=== PATIENT | male | born 1955 | race Caucasian/White ===

== ENCOUNTER 2021-03-07 14:26 | Inpatient (IN) | payer OTHER ==
[2021-03-07 14:44] LABS: Basophils % (A) 0 %; Eosinophils # (A) 0.1 k/uL (0-0.7); Eosinophils % (A) 1 %; HCT 46.8 % (39.0-53.0); HGB 15.3 gm/dL (13.0-17.5); Lymphocytes # (A) 1.6 k/uL (1.0-4.8); Lymphocytes % (A) 10 %; MCHC 32.8 g/dL (31.0-37.0); MCV 97.7 fL (80.0-100.0); Mean Platelet Volume 7.3; Monocytes # (A) 0.8 k/uL (0-1.0); Monocytes % (A) 5 %; Neutrophils # (A) 13.5 k/uL (1.3-7.7); Neutrophils % (A) 83 %; Platelet Count 262 k/uL (150-450); RBC 4.79 m/uL (4.30-5.90); RDW 13.1 % (11.5-15.5); WBC 16.2 k/uL (3.8-10.6)
--- NOTE | 2021-03-07 14:47 | ED ---
Chest Pain HPI - General Chief Complaint: Chest Pain Stated Complaint: chest pain Time Seen by Provider: 03/07/21 14:26 Source: patient, EMS, RN notes reviewed Mode of arrival: EMS Limitations: no limitations - History of Present Illness Initial Comments: 65-year-old male with a benign past medical history other than smoking who started developing retrosternal burning chest pain about 3 hours prior to arrival he states it was 5-6/10 severity he did finally call EMS he was very weak and believes she might pass out and chair. He was given 325 mg of aspirin away and he states the pain is down to about to it this time. EKG done by paramedics suggest inferior wall myocardial infarction. MD Complaint: chest pain - Related Data Allergies Allergy/AdvReac Type Severity Reaction Status Date / Time No Known Allergies Allergy Verified 03/07/21 14:32 Review of Systems ROS Statement: Those systems with pertinent positive or pertinent negative responses have been documented in the HPI. ROS Other: All systems not noted in ROS Statement are negative. EKG Findings - EKG Results: EKG: interpreted by AYDEE, sinus rhythm (Sinus rhythm rate 97 DE interval 138 QRS 96 QT since QTC 348/[address] elevation in leads II, III, and F aVF with reciprocal aVL changes. Some suggestion of ST depression in the lateral leads. Consistent with acute ST elevation myocardial infarction) Past Medical History Past Medical History: No Reported History History of Any Multi-Drug Resistant Organisms: None Reported Past Surgical History: No Surgical Hx Reported Past Psychological History: No Psychological Hx Reported Smoking Status: Current every day smoker Past Alcohol Use History: None Reported Past Drug Use History: None Reported General Exam - General Exam Comments Initial Comments: This is a well-developed well-nourished awake alert oriented 3 male Limitations: no limitations General appearance: alert, anxious, in distress Head exam: Present: atraumatic, normocephalic, normal inspection Eye exam: Present: normal appearance, PERRL, EOMI. Absent: scleral icterus, conjunctival injection, periorbital swelling ENT exam: Present: normal exam, mucous membranes moist Neck exam: Present: normal inspection, full ROM, other (Review of any or bruits). Absent: tenderness, meningismus, lymphadenopathy Respiratory exam: Present: normal lung sounds bilaterally. Absent: respiratory distress, wheezes, rales, rhonchi, stridor Cardiovascular Exam: Present: regular rate, normal rhythm, normal heart sounds. Absent: systolic murmur, diastolic murmur, rubs, gallop, clicks GI/Abdominal exam: Present: soft, normal bowel sounds. Absent: distended, tenderness, guarding, rebound, rigid Extremities exam: Present: normal inspection, full ROM, normal capillary refill. Absent: tenderness, pedal edema, joint swelling, calf tenderness Back exam: Present: normal inspection Neurological exam: Present: alert, oriented X3, CN II-XII intact Psychiatric exam: Present: normal affect, normal mood Skin exam: Present: warm, dry, intact, normal color. Absent: rash Course Vital Signs 03/07/21 14:29 Temperature 98.2 F Pulse Rate 95 Respiratory 18 Rate Blood Pressure 142/74 O2 Sat by Pulse 95 Oximetry - Reevaluation(s) Reevaluation #1: 03/07/21 14:37 A STEMI alert was called as soon as EKG was reviewed. Dr. Nevarez is coming to the emergency department to see the patient. The Special Education Aide has been alerted. Reevaluation #2: 03/07/21 14:50 The patient persisted having chest pain 2/10 severity nitroglycerin was ordered Chest Pain MDM - MDM Imaging reviewed no evidence of acute findings on x-ray patient did demonstrate evidence of ST elevation myocardial infarction Dr. Nevarez did come the emergency department to see the patient he did go up to the Special Education Aide member 3. I did discuss case with Dr. Carroll Critical Care Time Critical Care Time: Yes Total Critical Care Time: 32 Critical Care Time: Critical care time including initial presentation with history physical x-rays labs reevaluation patient several occasions discussed with financial controller discussion with the admitting physician admission orders and documentation the above this also did include discussion with patient regarding the initial findings. Disposition Clinical Impression: STEMI (ST elevation myocardial infarction), Smoker Disposition: ADMITTED IP TO THIS [facility] Condition: Serious Referrals: None,Stated [Primary Care Provider] - 1-2 days
[2021-03-07] MEDS ORDERED: HEPARIN SODIUM 1,000 UN/ML (10ML VL) ONE (14:51)
[2021-03-07 14:54] LABS: Albumin 4.3 g/dL (3.5-5.0); Calcium 9.1 mg/dL (8.4-10.2); Magnesium 1.9 mg/dL (1.6-2.3); Total Bilirubin 0.9 mg/dL (0.2-1.3); Total Protein 7.1 g/dL (6.3-8.2)
[2021-03-07 14:55] LABS: Potassium 4.5 mmol/L (3.5-5.1)
--- NOTE | 2021-03-07 14:58 | XR ---
EXAMINATION TYPE: XR chest 2V DATE OF EXAM: 03/07/2021 COMPARISON: NONE HISTORY: Chest pain TECHNIQUE: Frontal and lateral views of the chest are obtained. FINDINGS: There is no focal air space opacity, pleural effusion, or pneumothorax seen. The cardiac silhouette size is within normal limits. There are overlying artifacts. There is a spinal curvature. The osseous structures are intact. IMPRESSION: No acute cardiopulmonary process.
[2021-03-07] MEDS ORDERED: IV FLUID CONTINUATION 500 ML IV ONE ×2 (14:59→15:10)
[2021-03-07] MEDS ORDERED: MIDAZOLAM 2 MG/2 ML VIAL IV ONE (15:00)
[2021-03-07] MEDS ORDERED: fentaNYL (PF) 50 MCG/ML 5 ML AMP IV ONE (15:00)
[2021-03-07] MEDS ORDERED: LIDOCAINE 1% INJ 10MG/ML (20 ML MDV) SQ ONE (15:00)
[2021-03-07] MEDS ORDERED: VERAPAMIL SYRINGE (5 MG/10 ML) INTRAARTER ONE (15:03)
[2021-03-07 15:04] LABS: INR 0.9 (<1.2); Partial Thromboplastin Time 21.4 sec (22.0-30.0); Prothrombin Time 9.7 sec (9.0-12.0)
[2021-03-07] MEDS ORDERED: TICAGRELOR 90 MG TAB ONE (15:04)
[2021-03-07] MEDS ORDERED: HEPARIN SODIUM 1,000 UN/ML (10ML VL) IV ONE (15:05)
[2021-03-07] MEDS ORDERED: TICAGRELOR 90 MG TAB PO ONE (15:07)
[2021-03-07] MEDS ORDERED: NOREPINEPHRINE 4 MG in SODIUM CHLORIDE 0.9% 250 ML IV ONE (15:10)
[2021-03-07] MEDS ORDERED: ATROPINE SULFATE 0.1 MG/ML 10ML SYRINGE IV ONE (15:10)
[2021-03-07] MEDS ORDERED: niCARdipine 25 MG/10 ML VIAL ONE (15:16)
[2021-03-07] MEDS: niCARdipine Syringe (1,000 mcg/10 mL) INTRAARTER ONE ×2 (15:16→15:18)
[2021-03-07] MEDS ORDERED: SODIUM CHLORIDE 0.9% 500 ML 500 ML IV ONE (15:18)
[2021-03-07] MEDS ORDERED: IOPAMIDOL-370 125ML BTL INJ ONE (15:24)
[2021-03-07] MEDS ORDERED: IV FLUID CONTINUATION 1,000 ML IV ONE (15:30)
[2021-03-07 16:00] LABS: Glucose,Whole Blood 133 mg/dL (75-99)
[2021-03-07] MEDS ORDERED: bisacodyL 10 MG SUPP RECTAL PRN (17:05)
[2021-03-07] MEDS ORDERED: NALOXONE 0.4 MG/ML 1 ML VIAL IV PRN (17:05)
[2021-03-07] MEDS ORDERED: ACETAMINOPHEN TAB 325 MG TAB PO PRN (17:05)
[2021-03-07] MEDS ORDERED: NICOTINE GUM (POLACRILEX) 2 MG GUM BUCCAL PRN (17:05)
[2021-03-07] MEDS ORDERED: LORazepam 2 MG/ML INJ IV PRN ×3 (17:09)
[2021-03-07] MEDS ORDERED: MORPHINE SULFATE 4 MG/ML SYRINGE IV PRN (17:09)
[2021-03-07] MEDS ORDERED: THIAMINE 100 MG/ML 2 ML VIAL IM STA (17:09)
--- NOTE | 2021-03-07 17:16 | P.HPIM ---
History of Present Illness H&P Date: 03/07/21 Chief Complaint: chest pain Patient is a 65 yo smoker who presetned to the emergency department with complaints of chest pain. In the ED EKG revelaed elevation in the inferior leads and he was taken emergently to grass farm laborer. He had placed and did require some levophed and had some bradycardia requiring atropine, developed V-tach and required defib X1. . He was admitted to the ICU for further management. Patient seen and examined at bedside. Course of this morning he was sitting in his chair. He had just come back and side from smoking a cigarette when he developed chest pain, mild shortness of breath, nausea, presyncope, and dizziness. He felt like when he laid down his heart was slow and not fast. He reports that he drinks approximately 6-8 beers daily and smokes one to one and half packs of cigarettes since age 31. He has not seen a physician in 10 years. Denies any family history of myocardial infarction Pertinent positives and negatives as discussed in HPI, a complete review of systems was performed and all other systems are negative. General: non toxic, no distress, appears at stated age Derm: warm, dry Head: atraumatic, normocephalic, symmetric Eyes: EOMI, no lid lag, anicteric sclera, pupils equal round reactive to light ENT: Nose and ears atraumatic, no thrush, no pharyngeal erythema Neck: No thyromegaly, no cervical lymphadenopathy, trachea midline, supple Mouth: no lip lesion, mucus membranes moist Cardiovascular: S1S2 reg, no murmur, positive posterior tibial pulse bilateral, no edema, capillary refill less than 2 seconds Lungs: clear to ascultation bilateral, no ronchi, no rales, no wheeze, no accessory muscle use Abdominal: soft, nontender to palpation, no guarding, no appreciable organomegaly, normal bowel sounds Ext: no gross muscle atrophy, muscle strength muscle strength 5 out of 5 in all 4 extremities, no contractures Neuro: CN II-XI grossly intact, light touch intact all 4 extremities, finger to nose within normal limits, Psych: Alert, oriented, appropriate affect Inferior STEMI - s/p 1 stent to trhe RCA - ASA, Brillenta, Statin - Cardio recs - Echo in AM - Telel - Check Lipid Profile - check 1aV V-tachy and [place] s/p defib - Telel ETOH abuse - CIWA - Thiamine - F[place] Acid Tobacco abuse - cessation - nicotine replacement Leukocytosis - likely reactive - follow CBC The patient is admitted with an anticipated greater than 2 midnight stay for evaluation of STEMI. Surrogate decision-maker: daughter CODE STATUS:full DVT prophylaxis: Lovenox Discussed with: Larry, nursing, ED physician Anticipated discharge date: in [address]: home A total of 65 minutes was spent on the care of this complex patient more than 50% of the time was spent in counseling and care coordination. Past Medical History Past Medical History: No Reported History History of Any Multi-Drug Resistant Organisms: None Reported Additional Past Surgical History / Comment(s): knee surgery, left knee broken, right knee scoped Past Anesthesia/Blood Transfusion Reactions: No Reported Reaction Past Psychological History: No Psychological Hx Reported Smoking Status: Current every day smoker Past Alcohol Use History: Heavy Past Drug Use History: None Reported Additional History: retired truck driver helper - Past Family History Mother Family Medical History: No Reported History Father Additional Family Medical History / Comment(s): of cancer Brother(s) Additional Family Medical History / Comment(s): colostomy for bowel cancer Medications and Allergies Home Medications Medication Instructions Recorded Confirmed Type No Known Home Medications 03/07/21 03/07/21 History Allergies Allergy/AdvReac Type Severity Reaction Status Date / Time No Known Allergies Allergy Verified 03/07/21 16:34 Physical Exam Osteopathic Statement: *. No significant issues noted on an osteopathic structural exam other than those noted in the History and Physical/Consult. Vitals: Vital Signs Temp Pulse Pulse Resp BP Pulse Ox 03/07/21 17:00 91 14 97/66 98 03/07/21 16:35 97.7 F 93 12 112/72 96 03/07/21 14:35 78 18 142/70 97 03/07/21 14:29 98.2 F 95 18 142/74 95 03/07/21 14:28 80 Intake and Output 03/07/21 03/07/21 03/07/21 06:59 14:59 22:59 Intake Total 585 Balance 585 Intake: IV 585 NS at 75 75 Other: Weight 72.575 kg 78.5 kg Results CBC & Chem 7: 03/07/21 14:39 03/07/21 14:39 Labs: Abnormal Lab Results - Last 24 Hours (Table) 03/07/21 03/07/21 03/07/21 Range/Units 14:39 14:39 14:39 WBC 16.2 H (3.8-10.6) k/uL Neutrophils # 13.5 H (1.3-7.7) k/uL APTT 21.4 L (22.0-30.0) sec Sodium 136 L (137-145) mmol/L Carbon Dioxide 20 L (22-30) mmol/L Glucose 141 H (74-99) mg/dL POC Glucose (mg/dL) (75-99) mg/dL Troponin I (0.000-0.034) ng/mL 03/07/21 03/07/21 Range/Units 14:39 15:58 WBC (3.8-10.6) k/uL Neutrophils # (1.3-7.7) k/uL APTT (22.0-30.0) sec Sodium (137-145) mmol/L Carbon Dioxide (22-30) mmol/L Glucose (74-99) mg/dL POC Glucose (mg/dL) 133 H (75-99) mg/dL Troponin I 0.191 H* (0.000-0.034) ng/mL Thrombosis Risk Factor Assmnt - Choose All That Apply Any of the Below Risk Factors Present?: Yes Each Factor Represents 1 point: Acute LA, Medical pt on bed rest Other Risk Factors: Yes Each Risk Factor Represents 2 Points: Age 61-74 years Other congenital or acquired thrombophilia - If yes, enter type in comment: No Thrombosis Risk Factor Assessment Total Risk Factor Score: 4 Thrombosis Risk Factor Assessment Level: Moderate Risk
[2021-03-07] MEDS ORDERED: THIAMINE 100 MG TAB PO SCH (17:30)
[2021-03-07] MEDS ORDERED: ONDANSETRON 4 MG/2 ML VIAL IVP PRN (18:20)
[2021-03-07] MEDS: FOLIC ACID 1 MG TAB PO SCH (18:29)
[2021-03-07] MEDS: SODIUM CHLORIDE 0.9% 1,000 ML IV SCH ×2 (18:30→19:45)
[2021-03-07] MEDS ORDERED: MAG HYDROX/AL HYDROX/SIMETH 30 ML CUP PO PRN (18:35)
[2021-03-07] MEDS ORDERED: ATROPINE SULFATE 0.1 MG/ML 10ML SYRINGE IV PRN (18:35)
[2021-03-07] MEDS ORDERED: ZOLPIDEM 5 MG TAB PO PRN (18:35)
[2021-03-07] MEDS ORDERED: RX INFO: IV CONTRAST WAS GIVEN 1 EACH MISC MISCELLANE PRN (18:35)
[2021-03-07] MEDS ORDERED: NITROGLYCERIN SL TABS 0.4 MG TAB SUBLINGUAL PRN (18:35)
--- NOTE | 2021-03-07 18:48 | P.CRDCN ---
History of Present Illness History of present illness: HISTORY OF PRESENTING ILLNESS This is a pleasant 65-year-old with past medical history significant for tobacco abuse and alcohol abuse who presents secondary to approximate 3 hours of subster nal chest pain and pressure. He admits to some mild diaphoresis and shortness breath and states he has never had this before. He is not doing anything at the time. He did recently smoked marijuana however no cocaine or other illicit drugs. He does smoke a pack per day and drinks approximately 8 beers a day. EKG shows sinus rhythm with ST elevation inferiorly with reciprocal changes and therefore patient was taken to the [facility] where he had PCI of the RCA performed. He had otherwise minimal CAD with fairly normal coronary arteries. He did have significant bradycardia as well as hypotension requiring temporary norepinephrine and also had an episode of VT and therefore was defibrillated. REVIEW OF SYSTEMS At the time of my exam: CONSTITUTIONAL: Denies fever or chills. CARDIOVASCULAR: +chest pain, +shortness of breath, no orthopnea, PND or palpitations. RESPIRATORY: Denies cough. GASTROINTESTINAL: Denies abdominal pain, diarrhea, constipation, nausea or vomiting. MUSCULOSKELETAL: Denies myalgias. NEUROLOGIC: Denies numbness, tingling or weakness. ENDOCRINE: Denies fatigue, weight change, polydipsia or polyurina. GENITOURINARY: Denies burning, hematuria or urgency with micturation. HEMATOLOGIC: Denies history of anemia or bleeding. PHYSICAL EXAMINATION Vital signs reviewed. CONSTITUTIONAL: + mild distress. HEENT: Head is normocephalic. Pupils are equal, round. Sclerae anicteric. Mucous membranes of the mouth are moist. No JVD. No carotid bruit. CHEST EXAMINATION: Lungs are clear to auscultation. No chest wall tenderness is noted on palpation or with deep breathing. HEART EXAMINATION: Regular rate and rhythm. S1, S2 heard. No murmurs, gallops or rub. ABDOMEN: Soft, nontender. Positive bowel sounds. EXTREMITIES: 2+ peripheral pulses, no lower extremity edema and no calf tenderness. NEUROLOGIC EXAMINATION: Patient is awake, alert and oriented x3. ASSESSMENT 1. Inferior STEMI status post PCI RCA 2. Tobacco abuse 3. Alcohol abuse 4. Rare marijuana use 5. Poor medical follow-up, has not seen a doctor in years 6. VT, hypotension during PCI-improved PLAN Patient is status post PCI RCA with otherwise relatively normal coronary arteries. Continue with aspirin and Brilinta. Continue Lipitor and add low- dose Toprol however monitor closely given borderline blood pressures. Check 2-D echo. Tobacco cessation. Further recommendations to follow. Past Medical History Past Medical History: No Reported History History of Any Multi-Drug Resistant Organisms: None Reported Past Surgical History: No Surgical Hx Reported Additional Past Surgical History / Comment(s): knee surgery, left knee broken, right knee scoped Past Anesthesia/Blood Transfusion Reactions: No Reported Reaction Past Psychological History: No Psychological Hx Reported Smoking Status: Current every day smoker Past Alcohol Use History: Heavy Past Drug Use History: None Reported - Past Family History Mother History Unknown: Yes Family Medical History: No Reported History Father History Unknown: Yes Additional Family Medical History / Comment(s): of cancer Brother(s) Additional Family Medical History / Comment(s): colostomy for bowel cancer Medications and Allergies Home Medications Medication Instructions Recorded Confirmed Type No Known Home Medications 03/07/21 03/07/21 History Allergies Allergy/AdvReac Type Severity Reaction Status Date / Time No Known Allergies Allergy Verified 03/07/21 16:34 Physical Exam Vitals: Vital Signs Temp Pulse Pulse Resp BP Pulse Ox 03/07/21 18:00 87 16 113/72 97 03/07/21 17:30 96 14 112/72 97 03/07/21 17:00 91 14 97/66 98 03/07/21 16:35 97.7 F 93 12 112/72 96 03/07/21 14:35 78 18 142/70 97 03/07/21 14:29 98.2 F 95 18 142/74 95 03/07/21 14:28 80 Intake and Output 03/07/21 03/07/21 03/07/21 06:59 14:59 22:59 Intake Total 910 Output Total 250 Balance 660 Intake: IV 660 NS at 75 150 Oral 250 Output: Emesis 250 Other: Weight 72.575 kg 78.5 kg Results 03/07/21 14:39 03/07/21 14:39 Cardiac Enzymes 03/07/21 03/07/21 Range/Units 14:39 14:39 AST 36 (17-59) U/L Troponin I 0.191 H* (0.000-0.034) ng/mL Coagulation 03/07/21 Range/Units 14:39 PT 9.7 (9.0-12.0) sec APTT 21.4 L (22.0-30.0) sec CBC 03/07/21 Range/Units 14:39 WBC 16.2 H (3.8-10.6) k/uL RBC 4.79 (4.30-5.90) m/uL Hgb 15.3 (13.0-17.5) gm/dL Hct 46.8 (39.0-53.0) % Plt Count 262 (150-450) k/uL Comprehensive Metabolic Panel 03/07/21 Range/Units 14:39 Sodium 136 L (137-145) mmol/L Potassium 4.5 (3.5-5.1) mmol/L Chloride 104 (98-107) mmol/L Carbon Dioxide 20 L (22-30) mmol/L BUN 14 (9-20) mg/dL Creatinine 1.04 (0.66-1.25) mg/dL Glucose 141 H (74-99) mg/dL Calcium 9.1 (8.4-10.2) mg/dL AST 36 (17-59) U/L ALT 18 (4-49) U/L Alkaline Phosphatase 53 (38-126) U/L Total Protein 7.1 (6.3-8.2) g/dL Albumin 4.3 (3.5-5.0) g/dL Current Medications Generic Name Dose Route Start Last Admin Trade Name Freq PRN Reason Stop Dose Admin Acetaminophen 650 mg 03/07/21 17:05 Acetaminophen Tab 325 Mg Tab PO Q6HR PRN Mild Pain or Fever > 100.5 Al Hydroxide/Mg Hydroxide 30 ml 03/07/21 18:35 Mag Hydrox/Al Hydrox/Simeth 30 Ml Cup PO Q4HR PRN Heartburn Aspirin 81 mg 03/08/21 09:00 Aspirin 81 Mg PO DAILY [facility] Atorvastatin Calcium 40 mg 03/07/21 21:00 Atorvastatin 40 Mg Tab PO HS LEVI Atropine Sulfate 0.5 mg 03/07/21 18:35 Atropine Sulfate 0.1 Mg/Ml 10ml Syringe IV ONCE PRN Symptomatic Bradycardia Bisacodyl 10 mg 03/07/21 17:05 Bisacodyl 10 Mg Supp RECTAL ONCE PRN Constipation Enoxaparin Sodium 40 mg 03/08/21 09:00 Enoxaparin 40 Mg/0.4 Ml Syringe SQ DAILY [facility] Folic Acid 1 mg 03/07/21 17:15 03/07/21 18:29 Folic Acid 1 Mg Tab PO Not Given DAILY LEVI Sodium Chloride 1,000 mls @ 75 mls/hr 03/07/21 17:15 03/07/21 18:30 Saline 0.9% IV 75 mls/hr .[id number] LEVI Administration Sodium Chloride 1,000 mls @ 75 mls/hr 03/07/21 18:45 Saline 0.9% IV .[id number] LEVI Lorazepam 1 mg 03/07/21 17:09 Lorazepam 2 Mg/Ml Inj IV Q2HR PRN CIWA 8 or 9 Lorazepam 1 mg 03/07/21 17:09 Lorazepam 2 Mg/Ml Inj IV Q1HR PRN CIWA 10 to 15 Lorazepam 2 mg 03/07/21 17:09 Lorazepam 2 Mg/Ml Inj IV 03/09/21 17:09 Q10M PRN CIWA 16 or higher Metoprolol Succinate 12.5 mg 03/07/21 18:45 Metoprolol Succinate (Er) 25 Mg Tab.Er.24h PO DAILY [facility] Miscellaneous Information 1 each 03/07/21 18:35 Rx Info: Iv Contrast Was Given 1 Each Misc MISCELLANE 03/09/21 18:36 DAILY PRN Per Protocol Morphine Sulfate 4 mg 03/07/21 17:09 Morphine Sulfate 4 Mg/Ml Syringe IV Q5M PRN Chest Pain Multivitamins 1 each 03/08/21 09:00 Multivitamins, Thera 1 Each Tab PO DAILY [facility] Naloxone HCl 0.2 mg 03/07/21 17:05 Naloxone 0.4 Mg/Ml 1 Ml Vial IV Q2M PRN Opioid Reversal Nicotine Polacrilex 4 mg 03/07/21 17:05 Nicotine Gum (Polacrilex) 2 Mg Gum BUCCAL Q2HR PRN Nicotine Cravings Nitroglycerin 0.4 mg 03/07/21 18:35 Nitroglycerin Sl Tabs 0.4 Mg Tab SUBLINGUAL Q5M PRN Chest Pain Ondansetron HCl 4 mg 03/07/21 18:20 03/07/21 18:36 Ondansetron 4 Mg/2 Ml Vial IVP 4 mg Q8HR PRN Administration Nausea And Vomiting Thiamine HCl 100 mg 03/08/21 09:00 Thiamine 100 Mg Tab PO BID-W/MEALS [facility] Ticagrelor 90 mg 03/07/21 21:00 Ticagrelor 90 Mg Tab PO BID LEVI Zolpidem Tartrate 5 mg 03/07/21 18:35 Zolpidem 5 Mg Tab PO HS PRN Insomnia Intake and Output 03/07/21 03/07/21 03/07/21 06:59 14:59 22:59 Intake Total 910 Output Total 250 Balance 660 Intake: IV 660 NS at 75 150 Oral 250 Output: Emesis 250 Other: Weight 72.575 kg 78.5 kg Patient Weight 03/08/21 06:59 Weight 78.5 kg 03/07/21 14:39 03/07/21 14:39
[2021-03-07] MEDS: METOPROLOL SUCCINATE (ER) 25 MG TAB.ER.24H PO SCH (19:47)
--- NOTE | 2021-03-07 20:23 | P.PRCINT ---
Percutaneous Coronary Int. - Percutaneous Coronary Intervention Percutaneous Coronary Intervention: PROCEDURES PERFORMED: Left heart catheterization, bilateral coronary angiography, PCI mid RCA with a 4.0 x 23mm Xience CHUY INDICATION: Inferior STEMI HISTORY: Patient is a pleasant 65 year old male with history of alcohol and tobacco abuse who presents with 2-3 hours of chest pain and was found to have inferior STEMI. CONSENT:I have discussed the risks, benefits and alternative therapies for the above-mentioned procedure and for both sedation/analgesia as well as necessary blood product administration, if indicated, as they pertain to this patient. The patient has indicated understanding and acceptance of the risks and procedures discussed. PROCEDURE: After the risks, benefits and alternatives of the above mentioned procedure explained in detail with the patient, informed consent was obtained. Patient was taken to the catheterization lab and prepped and draped in usual fashion. 1% lidocaine was used to anesthetize the right radial artery. A 6- Scottish sheath was placed in the right radial artery using modified Seldinger technique. RCA angiography was performed with a 6Fr AL 0.75 guide. A 0.014 BMW wire was advanced into the distal RCA. Angioplasty was performed with a 2.5 x 12mm balloon. Patient did become bradycardic and hypotensive however this was improved with Norepinephrine. Patient then had an episode of VT and therefore defibirillation was performed. Next a 4.0 x 23mm Xience CHUY was placed. Preintervention there was 100% stenosis with EPG 0 flow and post intervention there was PEG 3 flow with 0% stenosis. Left coronary angiography was performed with a 5-Scottish JL 4.0 catheter in various views. The right radial sheath was removed and a TR band was placed with hemostasis achieved. The patient tolerated the procedure well. Patient was transported back to the post catheterization holding area in stable condition. Conscious Sedation: Patient was monitored under the direct supervision of vision of myself for conscious sedation using Versed and fentanyl for a total duration of [] minutes HEMODYNAMICS: Ao: 103/46 LV: 102/4, LVEDP: 11mmHg SELECTIVE CORONARY ARTERIOGRAPHY: LEFT MAIN: The left main is a large caliber vessel which bifurcates into the LAD and circumflex. There is no significant stenosis. LEFT ANTERIOR DESCENDING CORONARY ARTERY: LAD is a large caliber vessel which wraps around to the apex. There are mild luminal irregularities. LEFT CIRCUMFLEX CORONARY ARTERY: Left circumflex is a moderate caliber vessel with mild luminal irregularities. RIGHT CORONARY ARTERY: The right coronary artery is a large caliber vessel which gives off a PDA and PLV branch and is the dominant vessel. There is a mid RCA 100% stenosis. FINAL IMPRESSION: 1. CAD as described above with 100% RCA stenosis 2. Normal left sided filling pressures PLAN: 1. Aggressive risk factor modification per most recent ACC/AHA guidelines. 2. Continue dual antiplatelets for 12 months.
[2021-03-07] MEDS: TICAGRELOR 90 MG TAB PO SCH (20:34)
[2021-03-07] MEDS ORDERED: ATORVASTATIN 40 MG TAB PO SCH (21:00)
[2021-03-08] MEDS: ENOXAPARIN 40 MG/0.4 ML SYRINGE SQ SCH (08:54)
[2021-03-08] MEDS: METOPROLOL SUCCINATE (ER) 25 MG TAB.ER.24H PO SCH ×2 (08:54→09:03)
[2021-03-08] MEDS: ASPIRIN 81 MG PO SCH (08:54)
[2021-03-08] MEDS: MULTIVITAMINS, THERA 1 EACH TAB PO SCH (08:54)
[2021-03-08] MEDS: FOLIC ACID 1 MG TAB PO SCH (08:55)
[2021-03-08] MEDS ORDERED: TICAGRELOR 90 MG TAB PO STA (08:59)
[2021-03-08] MEDS ORDERED: ASPIRIN 325 MG TAB PO SCH (09:00)
[2021-03-08] MEDS: THIAMINE 100 MG TAB PO SCH ×2 (09:02→16:37)
[2021-03-08 09:04] LABS: HCT 41.2 % (39.0-53.0); HGB 13.8 gm/dL (13.0-17.5); MCH 33.1 pg (25.0-35.0); MCHC 33.4 g/dL (31.0-37.0); Mean Platelet Volume 7.4; Platelet Count 189 k/uL (150-450); RBC 4.16 m/uL (4.30-5.90); WBC 9.6 k/uL (3.8-10.6)
[2021-03-08 09:16] LABS: African American GFR (CKD) 87 (>60 ml/min/1.73 sqM); Anion Gap 6 mmol/L; Blood Urea Nitrogen 12 mg/dL (9-20); Calcium 8.6 mg/dL (8.4-10.2); Carbon Dioxide 22 mmol/L (22-30); Chloride 111 mmol/L (98-107); Glucose 139 mg/dL (74-99); Non-African American GFR(CKD) 75 (>60 ml/min/1.73 sqM); Sodium 139 mmol/L (137-145)
[2021-03-08] MEDS: SODIUM CHLORIDE 0.9% 1,000 ML IV SCH ×3 (10:26→21:31)
[2021-03-08 11:15] VITALS: BMI 25.5
--- NOTE | 2021-03-08 12:33 | P.PN ---
Subjective Progress Note Date: 03/08/21 HISTORY OF PRESENT ILLNESS: This is a pleasant 65-year-old with past medical history significant for tobacco abuse and alcohol abuse who presents secondary to approximate 3 hours of substernal chest pain and pressure. He admits to some mild diaphoresis and shortness breath and states he has never had this before. He is not doing anything at the time. He did recently smoked marijuana however no cocaine or other illicit drugs. He does smoke a pack per day and drinks approximately 8 beers a day. EKG shows sinus rhythm with ST elevation inferiorly with reciprocal changes and therefore patient was taken to the Mortgage Manager where he had PCI of the RCA performed. He had otherwise minimal CAD with fairly normal coronary arteries. He did have significant bradycardia as well as hypotension requiring temporary norepinephrine and also had an episode of VT and therefore was defibrillated. 03/08/2021 Patient examined this morning at the bedside. He is status post cardiac catheterization yesterday with PCI to the RCA. Patient denies chest pain or pressure. He denies shortness of breath. Patient has been having some small runs of nonsustained ventricular tachycardia. Pressure 131/81. Telemetry reveals sinus mechanism with a heart rate in the 80s. Right radial cath site with pulse present. PHYSICAL EXAM: VITAL SIGNS: Reviewed. GENERAL: Well-developed in no acute distress. NECK: Supple. No JVD or thyromegaly LUNGS: Respirations even and unlabored. Lungs essentially clear to auscultation bilaterally. HEART: Regular rate and rhythm. S1 and S2 heard. EXTREMITIES: Normal range of motion. No clubbing or cyanosis. Peripheral pulses intact. No lower extremity edema ASSESSMENT: 1. Inferior STEMI status post PCI RCA 2. Tobacco abuse 3. Alcohol abuse 4. Rare marijuana use 5. Poor medical follow-up, has not seen a doctor in years 6. VT, hypotension during PCI-improved PLAN: Continue to antiplatelet therapy with aspirin Brilinta Increase atorvastatin to 80 mg daily Increase metoprolol succinate to 25 mg daily 2D echo ordered. Await results Further recommendations pending patient course Nurse practitioner note has been reviewed by physician. Signing provider agrees with the documented findings, assessment, and plan of care. Objective - Vital Signs Vital signs: Vital Signs Temp 98.2 F 03/08/21 09:09 Pulse 86 03/08/21 11:48 Resp 18 03/08/21 11:48 BP 131/81 03/08/21 11:48 Pulse Ox 95 03/08/21 11:48 Intake & Output 03/07/21 03/08/21 03/08/21 18:59 06:59 18:59 Intake Total 985 750 Output Total 250 900 350 Balance 735 -150 -350 Weight 78.5 kg 78.5 kg Intake: IV 735 150 NS at 75 225 150 Intake, IV Titration 600 Amount Sodium Chloride 0.9% 1, 600 000 ml @ 75 mls/hr IV . [id number] [facility] Rx#:[id number] Oral 250 Output: Urine 0 900 350 Emesis 250 - Labs CBC & Chem 7: 03/08/21 08:00 03/08/21 08:00 Labs: Abnormal Lab Results - Last 24 Hours (Table) 03/07/21 03/07/21 03/07/21 Range/Units 14:39 14:39 14:39 WBC 16.2 H (3.8-10.6) k/uL RBC (4.30-5.90) m/uL Neutrophils # 13.5 H (1.3-7.7) k/uL APTT 21.4 L (22.0-30.0) sec Sodium 136 L (137-145) mmol/L Chloride (98-107) mmol/L Carbon Dioxide 20 L (22-30) mmol/L Glucose 141 H (74-99) mg/dL POC Glucose (mg/dL) (75-99) mg/dL Troponin I (0.000-0.034) ng/mL 03/07/21 03/07/21 03/08/21 Range/Units 14:39 15:58 08:00 WBC (3.8-10.6) k/uL RBC (4.30-5.90) m/uL Neutrophils # (1.3-7.7) k/uL APTT (22.0-30.0) sec Sodium (137-145) mmol/L Chloride 111 H (98-107) mmol/L Carbon Dioxide (22-30) mmol/L Glucose 139 H (74-99) mg/dL POC Glucose (mg/dL) 133 H (75-99) mg/dL Troponin I 0.191 H* (0.000-0.034) ng/mL 03/08/21 Range/Units 08:00 WBC (3.8-10.6) k/uL RBC 4.16 L (4.30-5.90) m/uL Neutrophils # (1.3-7.7) k/uL APTT (22.0-30.0) sec Sodium (137-145) mmol/L Chloride (98-107) mmol/L Carbon Dioxide (22-30) mmol/L Glucose (74-99) mg/dL POC Glucose (mg/dL) (75-99) mg/dL Troponin I (0.000-0.034) ng/mL
--- NOTE | 2021-03-08 15:05 | P.PN ---
Subjective Progress Note Date: 03/08/21 (delayed charting seen at 1030) Principal diagnosis: chest pain Patient is a 65 yo smoker who presetned to the emergency department with complaints of chest pain. In the ED EKG revelaed elevation in the inferior leads and he was taken emergently to photofinishing laboratory worker. He had placed and did require some levophed and had some bradycardia requiring atropine, developed V-tach and required defib X1. . He was admitted to the ICU for further management. Patient seen and examined at bedside. He denies any additional chest pain, no shortness of breath, no nausea after last night, no lightheaded or dizziness. General: non toxic, no distress, appears at stated age Derm: warm, dry Head: atraumatic, normocephalic, symmetric Eyes: EOMI, no lid lag, anicteric sclera Mouth: no lip lesion, mucus membranes moist Cardiovascular: S1S2 reg, no murmur, positive posterior tibial pulse bilateral, Lungs: CTA bilateral, no rhonchi, no rales , no accessory muscle use Abdominal: soft, nontender to palpation, no guarding, no appreciable organomegaly Ext: no gross muscle atrophy, no edema, no contractures Neuro: CN II-XI grossly intact, no focal neuro deficits Psych: Alert, oriented, appropriate affect Inferior STEMI - s/p PCI to the RCA - ASA, Brillenta, Statin - Cardio recs appreciated - Await Echo - Tele - Check Lipid Profile - check 1aV V-tachy and [place] s/p defib - Telel ETOH abuse - CIWA - Thiamine - [place] Acid Tobacco abuse - cessation - nicotine replacement Leukocytosis, resolved DVT prophylaxis: Lovenox Discussed with: carly Juarez Anticipated discharge date: in [address]: home A total of 25 minutes was spent on the care of this complex patient more than 50% of the time was spent in counseling and care coordination. Objective - Vital Signs Vital signs: Vital Signs Temp 98.2 F 03/08/21 09:09 Pulse 86 03/08/21 14:00 Resp 18 03/08/21 14:00 BP 131/81 03/08/21 11:48 Pulse Ox 95 03/08/21 11:48 Intake & Output 03/07/21 03/08/21 03/08/21 18:59 06:59 18:59 Intake Total 985 750 240 Output Total 250 900 350 Balance 735 -150 -110 Weight 78.5 kg 78.5 kg Intake: IV 735 150 NS at 75 225 150 Intake, IV Titration 600 Amount Sodium Chloride 0.9% 1, 600 000 ml @ 75 mls/hr IV . [id number] [facility] Rx#:[id number] Oral 250 240 Output: Urine 0 900 350 Emesis 250 - Labs CBC & Chem 7: 03/08/21 08:00 03/08/21 08:00 Labs: Abnormal Lab Results - Last 24 Hours (Table) 03/07/21 03/07/21 03/07/21 Range/Units 14:39 14:39 15:58 RBC (4.30-5.90) m/uL APTT 21.4 L (22.0-30.0) sec Chloride (98-107) mmol/L Glucose (74-99) mg/dL POC Glucose (mg/dL) 133 H (75-99) mg/dL Troponin I 0.191 H* (0.000-0.034) ng/mL 03/08/21 03/08/21 Range/Units 08:00 08:00 RBC 4.16 L (4.30-5.90) m/uL APTT (22.0-30.0) sec Chloride 111 H (98-107) mmol/L Glucose 139 H (74-99) mg/dL POC Glucose (mg/dL) (75-99) mg/dL Troponin I (0.000-0.034) ng/mL
[2021-03-08 15:50] LABS: Chol/HDL Ratio 4.22 Ratio; LDL Cholesterol,Calculated 100.2 mg/dL (0.0-131.0)
--- NOTE | 2021-03-08 18:47 | ECHOF ---
Referral Reason:Acute Coronary Syndrome MEASUREMENTS -------- HEIGHT: 175.3 cm WEIGHT: 78.5 kg BP: IVSd: 1.1 cm (0.6 - 1.1) LVIDd: 4.2 cm (3.9 - 5.3) LVPWd: 1.1 cm (0.6 - 1.1) EDV(Teich): 79 ml IVSs: 1.5 cm LVIDs: 3.0 cm LVPWs: 1.7 cm %IVS Thck: 44 % ESV(Teich): 34 ml EF(Teich): 57 % %FS: 30 % SV(Teich): 45 ml LA Diam: 3.1 cm (2.7 - 3.8) RVIDd: 3.2 cm (< 3.3) LALs A4C: 4.6 cm LAAs A4C: 11.7 cm LAESV A-L A4C: 25 ml LAESV MOD A4C: 22 ml LALs A2C: 3.8 cm LAAs A2C: 10.6 cm LAESV A-L A2C: 25 ml LAESV MOD A2C: 24 ml LAESV(A-L): 28 ml LAESV Index (A-L): 14.36 ml/m HR_2Ch_Q: 91 bpm HR_4Ch_Q: 98 bpm LVVED_2Ch_Q: 80 ml LVVED_4Ch_Q: 93 ml LVVED_BiP_Q: 87 ml LVVES_2Ch_Q: 42 ml LVVES_4Ch_Q: 46 ml LVVES_BiP_Q: 45 ml LVEF_2Ch_Q: 48 % LVEF_4Ch_Q: 50 % LVEF_BiP_Q: 49 % LVSV_2Ch_Q: 38 ml LVSV_4Ch_Q: 47 ml LVSV_BiP_Q: 42 ml LVCO_2Ch_Q: 3.5 l/min LVCO_4Ch_Q: 4.6 l/min LVCO_BiP_Q: 3.9 l/min LVLs_2Ch_Q: 7.2 cm LVLs_4Ch_Q: 6.7 cm LVLd_2Ch_Q: 8.4 cm LVLd_4Ch_Q: 8.3 cm Ao Diam: 2.8 cm (2.0 - 3.7) AV Cusp: 1.8 cm (1.5 - 2.6) EPSS: 0.7 cm MV E Hamzah: 0.69 m/s MV DecT: 146 ms MV Dec Sterling: 4.7 m/s MV A Hamzah: 0.80 m/s MV E/A Ratio: 0.85 MV PHT: 42 ms AV Vmax: 1.22 m/s AV maxP.95 mmHg TR Vmax: 2.47 m/s TR maxP.38 mmHg RAP: 5.00 mmHg RVSP: 29.38 mmHg MV EF SLOPE: 107.43 mm/s (70 - 150) MV EXCURSION: 19.46 mm (> 18.000) FINDINGS -------- Sinus rhythm. This was a technically good study. The left ventricular size is normal. There is borderline concentric left ventricular hypertrophy. Overall left ventricular systolic function is mildly impaired with, an EF between 45 - 50 %. Basal inferior LV wall motion is hypokinetic. Basal inferoseptal LV wall motion is hypokinetic. The right ventricle is normal in size. Normal LA size by volume 22+/-6 ml/m2. The right atrium is normal in size. Interatrial and interventricular septum intact. The aortic valve is trileaflet, and appears structurally normal. No aortic stenosis or regurgitation. There is trace to mild mitral regurgitation. Mild tricuspid regurgitation present. Right ventricular systolic pressure is normal at < 35 mmHg. The pulmonic valve was not well visualized. The aortic root size is normal. Normal inferior vena cava with normal inspiratory collapse consistent with estimated right atrial pre ssure of 5 mmHg. There is no pericardial effusion. CONCLUSIONS -------- 1. The left ventricular size is normal. 2. There is borderline concentric left ventricular hypertrophy. 3. Overall left ventricular systolic function is mildly impaired with, an EF between 45 - 50 %. 4. Basal inferior LV wall motion is hypokinetic. 5. Basal inferoseptal LV wall motion is hypokinetic. 6. The aortic valve is trileaflet, and appears structurally normal. No aortic stenosis or regurgitati on. 7. There is trace to mild mitral regurgitation. 8. Mild tricuspid regurgitation present. 9. There is no pericardial effusion. YARD SPOTTER: Padmini Cleaning RDCS
[2021-03-08] MEDS ORDERED: ATORVASTATIN 80 MG TAB PO SCH (21:00)
[2021-03-08] MEDS: TICAGRELOR 90 MG TAB PO SCH (21:29)
[2021-03-09] MEDS: THIAMINE 100 MG TAB PO SCH (06:14)
[2021-03-09] MEDS: FOLIC ACID 1 MG TAB PO SCH (08:29)
[2021-03-09] MEDS: TICAGRELOR 90 MG TAB PO SCH (08:29)
[2021-03-09] MEDS: METOPROLOL SUCCINATE (ER) 25 MG TAB.ER.24H PO SCH (08:30)
[2021-03-09] MEDS: MULTIVITAMINS, THERA 1 EACH TAB PO SCH (08:30)
[2021-03-09] MEDS: ASPIRIN 81 MG PO SCH (08:30)
[2021-03-09] MEDS: ENOXAPARIN 40 MG/0.4 ML SYRINGE SQ SCH (08:30)
[2021-03-09 08:37] VITALS: TEMP 98
[2021-03-09] MEDS ORDERED: CLOPIDOGREL 75 MG TAB PO STA (11:35)
--- NOTE | 2021-03-09 12:53 | P.DS ---
Providers Date of admission: 03/07/21 15:02 Expected date of discharge: 03/09/21 Attending physician: Heide Davis DO Consults: 03/07/21 17:08 Consult Physician Routine Consulting Provider: Kameron Nevarez Consult Reason/Comments: stemi Do you want consulting provider notified?: Already Contacted 03/07/21 18:36 Consult Physician Routine Consulting Provider: [facility] Consult Reason/Comments: Post Interventional patient Do you want consulting provider notified?: Already Contacted Primary care physician: Stated None Hospital Course: Discharge Diagnosis: Acute inferior ST segment elevated myocardial infarction Ventricular tachycardia secondary to above, resolved after stent placement Alcohol abuse Tobacco abuse Leukocytosis Hospital Course: Patient is a 65 yo smoker who presetned to the emergency department with complaints of chest pain. In the ED EKG revelaed elevation in the inferior leads and he was taken emergently to laboratory chief. He had placed and did require some levophed and had some bradycardia requiring atropine, developed V-tach and required defib X1. . He was admitted to the ICU for further management. He progressed well without any acute issues. hE did have an echocardiogram completed which showed an ejection fraction of 45-50% with some hypokinesis. The pressure was well-controlled. Cholesterol profile is a thin normal limits. Follow-up: Cardiology in 1-2 weeks, [facility]. Patient seen and examined at bedside. Doing well. Denies any chest pain, shortness breath, nausea, vomiting. He understands the importance of following up. Plans to apply for Medicaid and or Medicare. Vital signs reviewed and stable. General: non toxic, no distress, appears at stated age Derm: warm, dry Head: atraumatic, normocephalic, symmetric Eyes: EOMI, no lid lag, anicteric sclera Mouth: no lip lesion, mucus membranes moist Cardiovascular: S1S2 reg, no murmur, positive posterior tibial pulse bilateral, Lungs: CTA bilateral, no rhonchi, no rales , no accessory muscle use Abdominal: soft, nontender to palpation, no guarding, no appreciable organomegaly Ext: no gross muscle atrophy, no edema, no contractures Neuro: CN II-XI grossly intact, no focal neuro deficits Psych: Alert, oriented, appropriate affect A total of 37 minutes of time were spent preparing this complex discharge summary . Patient Condition at Discharge: Stable Plan - Discharge Summary Discharge Rx Participant: Yes New Discharge Prescriptions: New Metoprolol Succinate (ER) [Toprol XL] 25 mg PO DAILY #90 tablet Aspirin 81 mg PO DAILY #90 tab Atorvastatin [Lipitor] 80 mg PO HS #90 tab Nitroglycerin Sl Tabs [Nitrostat] 0.4 mg SUBLINGUAL Q5M PRN #100 tab PRN Reason: Chest Pain Clopidogrel [Plavix] 75 mg PO DAILY #90 tab Discharge Medication List Aspirin 81 mg PO DAILY #90 tab 03/09/21 [Rx] Atorvastatin [Lipitor] 80 mg PO HS #90 tab 03/09/21 [Rx] Clopidogrel [Plavix] 75 mg PO DAILY #90 tab 03/09/21 [Rx] Metoprolol Succinate (ER) [Toprol XL] 25 mg PO DAILY #90 tablet 03/09/21 [Rx] Nitroglycerin Sl Tabs [Nitrostat] 0.4 mg SUBLINGUAL Q5M PRN #100 tab 03/09/21 [Rx] Follow up Appointment(s)/Referral(s): Kameron Nevarez DO [STAFF PHYSICIAN] - 1 Week None,Stated [Primary Care Provider] - [facility] Week Patient Instructions/Handouts: Heart Attack (DC), Mediterranean Diet (DC) Activity/Diet/Wound Care/Special Instructions: Activity: as tolerated Diet: Heart Healthy Discharge Disposition: HOME SELF-CARE
[2021-03-09 12:54] VITALS: BP 127/77; PULSE 91; RESP 18
--- NOTE | 2021-03-09 13:27 | P.PN ---
Subjective Progress Note Date: 03/09/21 HISTORY OF PRESENT ILLNESS: This is a pleasant 65-year-old with past medical history significant for tobacco abuse and alcohol abuse who presents secondary to approximate 3 hours of substernal chest pain and pressure. He admits to some mild diaphoresis and shortness breath and states he has never had this before. He is not doing anything at the time. He did recently smoked marijuana however no cocaine or other illicit drugs. He does smoke a pack per day and drinks approximately 8 beers a day. EKG shows sinus rhythm with ST elevation inferiorly with reciprocal changes and therefore patient was taken to the Health Insurance Agent where he had PCI of the RCA performed. He had otherwise minimal CAD with fairly normal coronary arteries. He did have significant bradycardia as well as hypotension requiring temporary norepinephrine and also had an episode of VT and therefore was defibrillated. 03/08/2021 Patient examined this morning at the bedside. He is status post cardiac catheterization yesterday with PCI to the RCA. Patient denies chest pain or pressure. He denies shortness of breath. Patient has been having some small runs of nonsustained ventricular tachycardia. Pressure 131/81. Telemetry reveals sinus mechanism with a heart rate in the 80s. Right radial cath site with pulse present. 03/09/2021 Patient examined at the bedside. He denies chest pain or pressure. Denies shortness of breath. Vital signs remain stable. Echocardiogram completed revealing echocardiogram 45-50%, basal inferior LV wall hypokinesis, basal inferior septal LV wall hypokinesis, trace to mild mitral regurgitation and mild tricuspid regurgitation. PHYSICAL EXAM: VITAL SIGNS: Reviewed. GENERAL: Well-developed in no acute distress. NECK: Supple. No JVD or thyromegaly LUNGS: Respirations even and unlabored. Lungs essentially clear to auscultation bilaterally. HEART: Regular rate and rhythm. S1 and S2 heard. EXTREMITIES: Normal range of motion. No clubbing or cyanosis. Peripheral pulses intact. No lower extremity edema ASSESSMENT: 1. Inferior STEMI status post PCI RCA 2. Tobacco abuse 3. Alcohol abuse 4. Rare marijuana use 5. Poor medical follow-up, has not seen a doctor in years 6. VT, hypotension during PCI-improved PLAN: Continue current cardiac medications Patient unable to afford Brilinta. Will change to Plavix 75mg daily. Give 300 mg 1 dose now Patient is stable for discharge home today from a cardiac standpoint. Nurse practitioner note has been reviewed by physician. Signing provider agrees with the documented findings, assessment, and plan of care. Objective - Vital Signs Vital signs: Vital Signs Temp 98 F 03/09/21 12:45 Pulse 91 03/09/21 12:45 Resp 18 03/09/21 12:45 BP 127/77 03/09/21 12:45 Pulse Ox 98 03/09/21 12:45 Intake & Output 03/08/21 03/09/21 03/09/21 18:59 06:59 18:59 Intake Total 358 118 Output Total 350 950 Balance 8 -950 118 Weight 78.5 kg 79 kg Intake: Oral 358 118 Output: Urine 350 950 Other: # Voids 1 # Bowel Movements 0 - Labs CBC & Chem 7: 03/08/21 08:00 03/08/21 08:00 Labs: Abnormal Lab Results - Last 24 Hours (Table) 03/08/21 Range/Units 08:00 HDL Cholesterol 38.40 L (40.00-60.00) mg/dL
[2021-03-10] MEDS ORDERED: CLOPIDOGREL 75 MG TAB PO SCH (09:00)
== END 2021-03-09 15:38 | disposition home or self-care (01) | DRG 247 ==
LOC: EC 14:26 → 2SICU 15:02 → 3SCARD 22:22
PROVIDERS: ADMIT Internal Medicine; ATTEND Internal Medicine
PROC: B2111ZZ Fluoroscopy of Multiple Coronary Arteries using Low Osmolar Contrast (ICD-10-PCS; 2021-03-07)
PROC: 3E033XZ Introduction of Vasopressor into Peripheral Vein, Percutaneous Approach (ICD-10-PCS; 2021-03-07)
PROC: HZ2ZZZZ Detoxification Services for Substance Abuse Treatment (ICD-10-PCS; 2021-03-07)
PROC: 027034Z Dilation of Coronary Artery, One Artery with Drug-eluting Intraluminal Device, Percutaneous Approach (ICD-10-PCS; principal; 2021-03-07 14:35)
PROC: 4A023N7 Measurement of Cardiac Sampling and Pressure, Left Heart, Percutaneous Approach (ICD-10-PCS; 2021-03-07 14:35)
DX: I21.19 ST elevation (STEMI) myocardial infarction involving other coronary artery of inferior wall (principal); I47.2 Ventricular tachycardia; Z20.822 Contact with and (suspected) exposure to COVID-19; R00.1 Bradycardia, unspecified; D72.829 Elevated white blood cell count, unspecified; I95.9 Hypotension, unspecified; I08.1 Rheumatic disorders of both mitral and tricuspid valves; F10.10 Alcohol abuse, uncomplicated; F17.210 Nicotine dependence, cigarettes, uncomplicated; Z71.6 Tobacco abuse counseling
CPT/HCPCS: 36415; 71046; 80048; 80053; 80061; 83735; 84484; 85025; 85027; 85610; 85730; 87635; 92941; 93005; 93306; 93458; 99291

== ENCOUNTER 2021-03-21 19:17 | Observation (INO) | payer BC, OTHER ==
[2021-03-21] MEDS ORDERED: LORazepam 2 MG/ML INJ IV STA (19:57)
[2021-03-21] MEDS ORDERED: ALBUTEROL HFA INHALER INHALATION STA (19:57)
--- NOTE | 2021-03-21 20:04 | ED ---
Chest Pain HPI - General Chief Complaint: Chest Pain Stated Complaint: Chest Pain Time Seen by Provider: 03/21/21 19:17 Source: patient, EMS, RN notes reviewed, old records reviewed Mode of arrival: EMS - History of Present Illness Initial Comments: 65-year-old male with a 30-40 year history of smoking up to one half to 2 pack cigarettes per day also drinking 6-8 beers per day for many years who was brought in by EMS today because of some chest tightness shortness of breath some exertional dyspnea and dizziness. He states really had a much in way of chest discomfort he states he stopped smoking and drinking about a week ago and thinks she's going through withdrawals he was concerned that way he felt was similar to what he had earlier with his heart attack which was on the eighth of this month he had a 100% RCA obstruction and got one stent. He states no chest discomfort at this time he does feel short of breath or as if he cannot get a good breath he does say he's never been diagnosed with COPD asthma or emphysema. He had no fevers chills sweats he has a slight cough but no phlegm production. MD Complaint: other - Related Data Previous Rx's Medication Instructions Recorded Aspirin 81 mg PO DAILY #90 tab 03/09/21 Atorvastatin [Lipitor] 80 mg PO HS #90 tab 03/09/21 Clopidogrel [Plavix] 75 mg PO DAILY #90 tab 03/09/21 Metoprolol Succinate (ER) [Toprol 25 mg PO DAILY #90 tablet 03/09/21 XL] Nitroglycerin Sl Tabs [Nitrostat] 0.4 mg SUBLINGUAL Q5M PRN #100 tab 03/09/21 Allergies Allergy/AdvReac Type Severity Reaction Status Date / Time No Known Allergies Allergy Verified 03/21/21 20:51 Review of Systems ROS Statement: Those systems with pertinent positive or pertinent negative responses have been documented in the HPI. ROS Other: All systems not noted in ROS Statement are negative. EKG Findings - EKG Results: EKG: interpreted by AYDEE, sinus rhythm (Sinus rhythm with PVCs rate 82. Interval 150 QRS duration 76 QT since QTC 380/443 left exodeviation evidence of inferior changes) Past Medical History Past Medical History: No Reported History History of Any Multi-Drug Resistant Organisms: None Reported Past Surgical History: No Surgical Hx Reported, Heart Catheterization With Stent Additional Past Surgical History / Comment(s): knee surgery, left knee broken, right knee scoped Past Anesthesia/Blood Transfusion Reactions: No Reported Reaction Past Psychological History: No Psychological Hx Reported Smoking Status: Former smoker Past Alcohol Use History: Heavy Past Drug Use History: None Reported - Past Family History Mother History Unknown: Yes Family Medical History: No Reported History Father History Unknown: Yes Additional Family Medical History / Comment(s): of cancer Brother(s) Additional Family Medical History / Comment(s): colostomy for bowel cancer General Exam - General Exam Comments Initial Comments: This is a well-developed well-nourished awake alert oriented 3 male General appearance: alert, anxious Head exam: Present: atraumatic, normocephalic, normal inspection Eye exam: Present: normal appearance, PERRL, EOMI. Absent: scleral icterus, conjunctival injection, periorbital swelling ENT exam: Present: normal exam, mucous membranes moist Neck exam: Present: normal inspection. Absent: tenderness, meningismus, lymphadenopathy Respiratory exam: Present: normal lung sounds bilaterally. Absent: respiratory distress, wheezes, rales, rhonchi, stridor Cardiovascular Exam: Present: regular rate, normal rhythm, normal heart sounds. Absent: systolic murmur, diastolic murmur, rubs, gallop, clicks GI/Abdominal exam: Present: soft, normal bowel sounds. Absent: distended, tenderness, guarding, rebound, rigid Extremities exam: Present: normal inspection, full ROM, normal capillary refill. Absent: tenderness, pedal edema, joint swelling, calf tenderness Back exam: Present: normal inspection Neurological exam: Present: alert, oriented X3, CN II-XII intact Psychiatric exam: Present: normal affect, normal mood Skin exam: Present: warm, dry, intact, normal color. Absent: rash Course Vital Signs 03/21/21 03/21/21 19:28 20:13 Temperature 99.1 F Pulse Rate 79 72 Respiratory 18 20 Rate Blood Pressure 142/73 122/95 O2 Sat by Pulse 99 99 Oximetry Chest Pain MDM - MDM Initial cardiac enzymes show negative elevation x-ray shows no acute processes. Patient is also somewhat improved however due to the recent catheterization in 100% occlusion of the RCA patient be admitted for evaluation and did discuss case with Dr. Leal as well as with Dr. Tumma Disposition Clinical Impression: Chest pain, Substance withdrawal Disposition: ADMITTED IP TO THIS HOSP Condition: Fair Referrals: None,Stated [Primary Care Provider] - 1-2 days
[2021-03-21 20:17] LABS: Basophils # (A) 0.1 k/uL (0-0.2); Basophils % (A) 1 %; Eosinophils # (A) 0.1 k/uL (0-0.7); Eosinophils % (A) 2 %; HCT 41.2 % (39.0-53.0); HGB 13.8 gm/dL (13.0-17.5); Lymphocytes % (A) 22 %; MCH 32.3 pg (25.0-35.0); MCHC 33.6 g/dL (31.0-37.0); MCV 96.3 fL (80.0-100.0); Mean Platelet Volume 7.9; Monocytes # (A) 0.4 k/uL (0-1.0); Monocytes % (A) 5 %; Neutrophils # (A) 6.5 k/uL (1.3-7.7); Neutrophils % (A) 70 %; Platelet Count 236 k/uL (150-450); RBC 4.28 m/uL (4.30-5.90); RDW 12.7 % (11.5-15.5); WBC 9.3 k/uL (3.8-10.6)
[2021-03-21 20:25] LABS: ALT 17 U/L (4-49); AST 35 U/L (17-59); African American GFR (CKD) >90 (>60 ml/min/1.73 sqM); Alkaline Phosphatase 53 U/L (38-126); Anion Gap 9 mmol/L; Blood Urea Nitrogen 19 mg/dL (9-20); Calcium 8.7 mg/dL (8.4-10.2); Carbon Dioxide 21 mmol/L (22-30); Chloride 108 mmol/L (98-107); Glucose 112 mg/dL (74-99); Lipase 282 U/L (23-300); Magnesium 1.9 mg/dL (1.6-2.3); Non-African American GFR(CKD) 87 (>60 ml/min/1.73 sqM); Sodium 138 mmol/L (137-145); Total Bilirubin 0.7 mg/dL (0.2-1.3); Total Protein 6.9 g/dL (6.3-8.2)
[2021-03-21 20:26] LABS: Potassium 4.8 mmol/L (3.5-5.1)
--- NOTE | 2021-03-21 20:47 | XR ---
EXAMINATION TYPE: XR chest 2V DATE OF EXAM: 03/21/2021 COMPARISON: NONE HISTORY: Short of breath TECHNIQUE: 2 views FINDINGS: Heart and mediastinum are normal. Lungs are clear. Diaphragm is normal. Bony thorax is inta ct. IMPRESSION: Normal chest.
[2021-03-21 20:58] LABS: INR 0.9 (<1.2); Prothrombin Time 10.2 sec (9.0-12.0)
[2021-03-21 20:59] LABS: Partial Thromboplastin Time 20.7 sec (22.0-30.0)
[2021-03-21] MEDS ORDERED: NITROGLYCERIN SL TABS 0.4 MG TAB SUBLINGUAL PRN (21:14)
[2021-03-21] MEDS ORDERED: HEPARIN SODIUM 1,000 UN/ML (10ML VL) IV ONE (21:14)
[2021-03-21] MEDS ORDERED: ALBUTEROL NEBULIZED 2.5 MG/3 ML INHALATION PRN (21:17)
[2021-03-21] MEDS ORDERED: MAG HYDROX/AL HYDROX/SIMETH 30 ML CUP PO PRN (21:29)
[2021-03-21] MEDS ORDERED: CALCIUM CARBONATE 500 MG CHEWABLE PO PRN (21:29)
[2021-03-21] MEDS ORDERED: ACETAMINOPHEN TAB 325 MG TAB PO PRN (21:29)
[2021-03-21] MEDS ORDERED: ONDANSETRON 4 MG/2 ML VIAL IVP PRN (21:29)
[2021-03-21] MEDS ORDERED: HEPARIN SOD,PORK IN 0.45% NACL 25,000 UNIT in 0.45% NACL 1 250ML.BAG IV SCH (21:30)
[2021-03-21] MEDS: NICOTINE 21MG/24HR PATCH TRANSDERM STA ×2 (21:34→21:38)
--- NOTE | 2021-03-21 21:34 | ED ---
Medical Decision Making - Medical Decision Making Patient did get relief from the inhaler that he was given. He feels much improved after using it. - Lab Data Result diagrams: 03/21/21 20:06 03/21/21 20:06 Lab Results 03/21/21 03/21/21 03/21/21 Range/Units 20:06 20:06 20:06 WBC 9.3 (3.8-10.6) k/uL RBC 4.28 L (4.30-5.90) m/uL Hgb 13.8 (13.0-17.5) gm/dL Hct 41.2 (39.0-53.0) % MCV 96.3 (80.0-100.0) fL MCH 32.3 (25.0-35.0) pg MCHC 33.6 (31.0-37.0) g/dL RDW 12.7 (11.5-15.5) % Plt Count 236 (150-450) k/uL MPV 7.9 Neutrophils % 70 % Lymphocytes % 22 % Monocytes % 5 % Eosinophils % 2 % Basophils % 1 % Neutrophils # 6.5 (1.3-7.7) k/uL Lymphocytes # 2.0 (1.0-4.8) k/uL Monocytes # 0.4 (0-1.0) k/uL Eosinophils # 0.1 (0-0.7) k/uL Basophils # 0.1 (0-0.2) k/uL PT 10.2 (9.0-12.0) sec INR 0.9 (<1.2) APTT 20.7 L (22.0-30.0) sec D-Dimer 0.49 (<0.60) mg/L FEU Sodium 138 (137-145) mmol/L Potassium 4.8 (3.5-5.1) mmol/L Chloride 108 H (98-107) mmol/L Carbon Dioxide 21 L (22-30) mmol/L Anion Gap 9 mmol/L BUN 19 (9-20) mg/dL Creatinine 0.93 (0.66-1.25) mg/dL Est GFR (CKD-EPI)AfAm >90 (>60 ml/min/1.73 sqM) Est GFR (CKD-EPI)NonAf 87 (>60 ml/min/1.73 sqM) Glucose 112 H (74-99) mg/dL Calcium 8.7 (8.4-10.2) mg/dL Magnesium 1.9 (1.6-2.3) mg/dL Total Bilirubin 0.7 (0.2-1.3) mg/dL AST 35 (17-59) U/L ALT 17 (4-49) U/L Alkaline Phosphatase 53 (38-126) U/L Troponin I (0.000-0.034) ng/mL NT-Pro-B Natriuret Pep pg/mL Total Protein 6.9 (6.3-8.2) g/dL Albumin 4.0 (3.5-5.0) g/dL Lipase 282 (23-300) U/L 03/21/21 03/21/21 Range/Units 20:06 20:06 WBC (3.8-10.6) k/uL RBC (4.30-5.90) m/uL Hgb (13.0-17.5) gm/dL Hct (39.0-53.0) % MCV (80.0-100.0) fL MCH (25.0-35.0) pg MCHC (31.0-37.0) g/dL RDW (11.5-15.5) % Plt Count (150-450) k/uL MPV Neutrophils % % Lymphocytes % % Monocytes % % Eosinophils % % Basophils % % Neutrophils # (1.3-7.7) k/uL Lymphocytes # (1.0-4.8) k/uL Monocytes # (0-1.0) k/uL Eosinophils # (0-0.7) k/uL Basophils # (0-0.2) k/uL PT (9.0-12.0) sec INR (<1.2) APTT (22.0-30.0) sec D-Dimer (<0.60) mg/L FEU Sodium (137-145) mmol/L Potassium (3.5-5.1) mmol/L Chloride (98-107) mmol/L Carbon Dioxide (22-30) mmol/L Anion Gap mmol/L BUN (9-20) mg/dL Creatinine (0.66-1.25) mg/dL Est GFR (CKD-EPI)AfAm (>60 ml/min/1.73 sqM) Est GFR (CKD-EPI)NonAf (>60 ml/min/1.73 sqM) Glucose (74-99) mg/dL Calcium (8.4-10.2) mg/dL Magnesium (1.6-2.3) mg/dL Total Bilirubin (0.2-1.3) mg/dL AST (17-59) U/L ALT (4-49) U/L Alkaline Phosphatase (38-126) U/L Troponin I 0.021 (0.000-0.034) ng/mL NT-Pro-B Natriuret Pep 813 pg/mL Total Protein (6.3-8.2) g/dL Albumin (3.5-5.0) g/dL Lipase (23-300) U/L Disposition Clinical Impression: Chest pain, Substance withdrawal, Bronchospasm Disposition: ADMITTED IP TO THIS HOSP Condition: Fair Referrals: None,Stated [Primary Care Provider] - 1-2 days
--- NOTE | 2021-03-21 21:35 | P.HPIM ---
History of Present Illness H&P Date: 03/21/21 65-year-old male with a 30-40 year history of smoking up to one half to 2 pack cigarettes per day also drinking 6-8 beers per day for many years who was brought in by EMS today because of some chest tightness shortness of breath some exertional dyspnea and dizziness. He states really had a much in way of chest discomfort he states he stopped smoking and drinking about a week ago and thinks she's going through withdrawals he was concerned that way he felt was similar to what he had earlier with his heart attack which was on the eighth of this month he had a 100% RCA obstruction and got one stent. He states no chest discomfort at this time he does feel short of breath or as if he cannot get a good breath he does say he's never been diagnosed with COPD asthma or emphysema. He had no fevers chills sweats he has a slight cough but no phlegm production. Currently patient is that he doesn't have any chest tightness and it completely resolved and the dizziness also resolved Review of systems and systems has been reviewed all negative and positive findings as per HPI Constitutional: No acute distress, conversant, pleasant Eyes: Anicteric sclerae, moist conjunctiva, no lid-lag PERRLA ENMT: NC/AT Oropharynx clear, no erythema, exudates Neck: Supple, FROM, no masses, or JVD No carotid bruits No thyromegaly Lungs: Clear to auscultation Clear to percussion Normal respiratory effort, no accessory muscle use Cardiovascular: Heart regular in rate and rhythm, No murmurs, gallops, or rubs No peripheral edema Abdominal: Soft Nontender, no guarding, rebound or rigidity Abdomen moving with respiration Normoactive bowel sounds No hepatomegaly, No splenomegaly No palpable mass No abdominal wall hernia noted Skin: Normal temperature, tone, texture, turgor No induration No subcutaneous nodules No rash, lesions No ulcers Extremities: No digital cyanosis No clubbing Pedal pulses intact and symmetrical Radial pulses intact and symmetrical Normal gait and station No calf tenderness Psychiatric:Alert and oriented to person, place and time Appropriate affect Intact judgement Neuro: Muscles Strength 5/5 in all 4 extremities Sensation to light touch grossly present throughout Cranial nerves II-XII grossly intact No focal sensory deficits Assessment and plan Mild chest discomfort resolved no evidence of acute coronary syndrome at this time but since the patient did have a recent stent cardiology will be consulted and patient will be observed Dizziness nonspecific resolved No evidence of PE d-dimer is negative We'll check cardiac enzymes We'll check computed tomography scan of the brain Past Medical History Past Medical History: No Reported History History of Any Multi-Drug Resistant Organisms: None Reported Past Surgical History: No Surgical Hx Reported, Heart Catheterization With Stent Additional Past Surgical History / Comment(s): knee surgery, left knee broken, right knee scoped Past Anesthesia/Blood Transfusion Reactions: No Reported Reaction Past Psychological History: No Psychological Hx Reported Smoking Status: Former smoker Past Alcohol Use History: Heavy Past Drug Use History: None Reported - Past Family History Mother History Unknown: Yes Family Medical History: No Reported History Father History Unknown: Yes Additional Family Medical History / Comment(s): of cancer Brother(s) Additional Family Medical History / Comment(s): colostomy for bowel cancer Medications and Allergies Home Medications Medication Instructions Recorded Confirmed Type Aspirin 81 mg PO DAILY #90 tab 03/09/21 03/21/21 Rx Atorvastatin [Lipitor] 80 mg PO HS #90 tab 03/09/21 03/21/21 Rx Clopidogrel [Plavix] 75 mg PO DAILY #90 tab 03/09/21 03/21/21 Rx Metoprolol Succinate (ER) [Toprol 25 mg PO DAILY #90 tablet 03/09/21 03/21/21 Rx XL] Nitroglycerin Sl Tabs [Nitrostat] 0.4 mg SUBLINGUAL Q5M PRN #100 tab 03/09/21 03/21/21 Rx Allergies Allergy/AdvReac Type Severity Reaction Status Date / Time No Known Allergies Allergy Verified 03/21/21 20:51 Physical Exam Vitals: Vital Signs Temp Pulse Resp BP Pulse Ox 03/21/21 20:13 72 20 122/95 99 03/21/21 19:28 99.1 F 79 18 142/73 99 Intake and Output 03/21/21 03/21/21 03/21/21 06:59 14:59 22:59 Other: Weight 72.575 kg Results CBC & Chem 7: 03/21/21 20:06 03/21/21 20:06 Labs: Abnormal Lab Results - Last 24 Hours (Table) 03/21/21 03/21/21 03/21/21 Range/Units 20:06 20:06 20:06 RBC 4.28 L (4.30-5.90) m/uL APTT 20.7 L (22.0-30.0) sec Chloride 108 H (98-107) mmol/L Carbon Dioxide 21 L (22-30) mmol/L Glucose 112 H (74-99) mg/dL
--- NOTE | 2021-03-21 22:13 | CT ---
EXAMINATION TYPE: CT brain wo con DATE OF EXAM: 03/21/2021 COMPARISON: None HISTORY: Dizziness post heart cath a couple days ago. CT DLP: 1099.4 mGycm Automated exposure control for dose reduction was used. Ventricles have normal size. There is no mass effect nor midline shift. There is no sign of intracran ial hemorrhage. Calvarium is intact. Mastoid sinuses appear normal. There is some mucosal thickening in the maxillary sinuses. IMPRESSION: Mild maxillary sinusitis. Otherwise negative exam.
[2021-03-22 02:37] LABS: Basophils # (A) 0.1 k/uL (0-0.2); Basophils % (A) 1 %; Eosinophils # (A) 0.1 k/uL (0-0.7); Eosinophils % (A) 1 %; HGB 13.7 gm/dL (13.0-17.5); Lymphocytes # (A) 3.1 k/uL (1.0-4.8); Lymphocytes % (A) 32 %; MCH 31.7 pg (25.0-35.0); MCHC 32.6 g/dL (31.0-37.0); MCV 97.3 fL (80.0-100.0); Mean Platelet Volume 7.6; Monocytes # (A) 0.4 k/uL (0-1.0); Monocytes % (A) 4 %; Neutrophils # (A) 5.9 k/uL (1.3-7.7); Neutrophils % (A) 61 %; Platelet Count 239 k/uL (150-450); RBC 4.32 m/uL (4.30-5.90); RDW 12.6 % (11.5-15.5); WBC 9.7 k/uL (3.8-10.6)
[2021-03-22] MEDS ORDERED: HEPARIN SODIUM 1,000 UN/ML (10ML VL) IV PRN (03:42)
[2021-03-22 03:54] LABS: ALT 16 U/L (4-49); AST 24 U/L (17-59); African American GFR (CKD) >90 (>60 ml/min/1.73 sqM); Albumin 3.6 g/dL (3.5-5.0); Alkaline Phosphatase 66 U/L (38-126); Anion Gap 9 mmol/L; Blood Urea Nitrogen 17 mg/dL (9-20); Calcium 8.6 mg/dL (8.4-10.2); Carbon Dioxide 23 mmol/L (22-30); Chloride 109 mmol/L (98-107); Glucose 101 mg/dL (74-99); Non-African American GFR(CKD) 86 (>60 ml/min/1.73 sqM); Potassium 4.1 mmol/L (3.5-5.1); Sodium 141 mmol/L (137-145); Total Bilirubin 0.2 mg/dL (0.2-1.3); Total Protein 6.3 g/dL (6.3-8.2)
[2021-03-22] MEDS ORDERED: CLOPIDOGREL 75 MG TAB PO SCH (09:00)
[2021-03-22] MEDS ORDERED: METOPROLOL SUCCINATE (ER) 25 MG TAB.ER.24H PO SCH (09:00)
[2021-03-22] MEDS ORDERED: ASPIRIN 325 MG TAB PO SCH (09:00)
--- NOTE | 2021-03-22 09:17 | P.CRDCN ---
History of Present Illness Consult date: 03/22/21 Chief complaint: Shortness of breath History of present illness: The patient is a pleasant 65-year-old gentleman with coronary artery disease and recent diagnosed as acute coronary syndrome and status post PCI of the RCA as well as mild cardiomyopathy, ischemic, with an EF between 40-45% as well as significant history of smoking presented to the emergency department and subsequently admitted to the hospital with shortness of breath. The patient stated that he was doing well after he was discharged from the hospital recently and he has been compliant with his medications including dual antiplatelet therapy. For the last 24 hours he has been short of breath. He reports no symptoms of chest pain or chest discomfort. He reports no dizziness or lightheadedness and no presyncope or syncope. As a mentioned earlier he stated that he has been compliant with his medications. For that reason he decided to come to the emergency department. In the ER he underwent a workup including EKG showing sinus rhythm with a Q wave inferiorly and T-wave inversion inferiorly. The troponin at 3 sets came in to be unremarkable. The chest x-ray showed no acute abnormalities. For some reason the patient underwent computed tomography scan of the brain and that also came in to be unremarkable. He is asking to go home. He is on dual antiplatelet therapy along with high intensity statin. When the patient was seen this morning he seems to be euvolemic on examination. He is chest pain-free. Past Medical History Past Medical History: No Reported History History of Any Multi-Drug Resistant Organisms: None Reported Past Surgical History: No Surgical Hx Reported, Heart Catheterization With Stent Additional Past Surgical History / Comment(s): knee surgery, left knee broken, right knee scoped Past Anesthesia/Blood Transfusion Reactions: No Reported Reaction Date of Last Stent Placement:: 02/2021 Past Psychological History: No Psychological Hx Reported Smoking Status: Former smoker Past Alcohol Use History: Heavy Past Drug Use History: None Reported - Past Family History Mother History Unknown: Yes Family Medical History: No Reported History Father History Unknown: Yes Additional Family Medical History / Comment(s): of cancer Brother(s) Additional Family Medical History / Comment(s): colostomy for bowel cancer Medications and Allergies Home Medications Medication Instructions Recorded Confirmed Type Aspirin 81 mg PO DAILY #90 tab 03/09/21 03/21/21 Rx Atorvastatin [Lipitor] 80 mg PO HS #90 tab 03/09/21 03/21/21 Rx Clopidogrel [Plavix] 75 mg PO DAILY #90 tab 03/09/21 03/21/21 Rx Metoprolol Succinate (ER) [Toprol 25 mg PO DAILY #90 tablet 03/09/21 03/21/21 Rx XL] Nitroglycerin Sl Tabs [Nitrostat] 0.4 mg SUBLINGUAL Q5M PRN #100 tab 03/09/21 03/21/21 Rx Allergies Allergy/AdvReac Type Severity Reaction Status Date / Time No Known Allergies Allergy Verified 03/21/21 20:51 Physical Exam Vitals: Vital Signs Temp Pulse Pulse Resp BP BP Pulse Ox 03/22/21 02:00 98.1 F 49 L 16 118/60 100 03/21/21 23:21 97.7 F 87 18 120/71 95 03/21/21 22:30 72 16 114/84 96 03/21/21 21:38 73 20 108/68 97 03/21/21 20:13 72 20 122/95 99 03/21/21 19:28 99.1 F 79 18 142/73 99 Intake and Output 03/21/21 03/22/21 03/22/21 22:59 06:59 14:59 Intake Total 55.012 Balance 55.012 Intake: Intake, IV Titration 55.012 Amount Heparin Sod,Pork in 0.45% 55.012 NaCl 25,000 unit In 0.45 % NaCl 1 250ml.bag @ 12 UNITS/KG/HR 8.709 mls/hr IV .Q24H [facility] Rx#: [id number] Other: # Voids 1 Weight 72.575 kg - Constitutional General appearance: no acute distress - Respiratory Respiratory: bilateral: CTA - Cardiovascular Rhythm: regular Heart sounds: normal: S1, S2 Results 03/22/21 02:23 03/22/21 02:23 Cardiac Enzymes 03/21/21 03/21/21 03/21/21 Range/Units 20:06 20:06 23:59 AST 35 (17-59) U/L Troponin I 0.021 0.021 (0.000-0.034) ng/mL 03/22/21 03/22/21 Range/Units 02:23 02:23 AST 24 (17-59) U/L Troponin I 0.014 (0.000-0.034) ng/mL Coagulation 03/21/21 03/22/21 Range/Units 20:06 02:23 PT 10.2 (9.0-12.0) sec APTT 20.7 L 42.3 H (22.0-30.0) sec CBC 03/21/21 03/22/21 Range/Units 20:06 02:23 WBC 9.3 9.7 (3.8-10.6) k/uL RBC 4.28 L 4.32 (4.30-5.90) m/uL Hgb 13.8 13.7 (13.0-17.5) gm/dL Hct 41.2 42.0 (39.0-53.0) % Plt Count 236 239 (150-450) k/uL Comprehensive Metabolic Panel 03/21/21 03/22/21 Range/Units 20:06 02:23 Sodium 138 141 (137-145) mmol/L Potassium 4.8 4.1 (3.5-5.1) mmol/L Chloride 108 H 109 H (98-107) mmol/L Carbon Dioxide 21 L 23 (22-30) mmol/L BUN 19 17 (9-20) mg/dL Creatinine 0.93 0.94 (0.66-1.25) mg/dL Glucose 112 H 101 H (74-99) mg/dL Calcium 8.7 8.6 (8.4-10.2) mg/dL AST 35 24 (17-59) U/L ALT 17 16 (4-49) U/L Alkaline Phosphatase 53 66 (38-126) U/L Total Protein 6.9 6.3 (6.3-8.2) g/dL Albumin 4.0 3.6 (3.5-5.0) g/dL Current Medications Generic Name Dose Route Start Last Admin Trade Name Freq PRN Reason Stop Dose Admin Acetaminophen 650 mg 03/21/21 21:29 Acetaminophen Tab 325 Mg Tab PO Q6HR PRN Mild Pain or Fever > 100.5 Al Hydroxide/Mg Hydroxide 15 ml 03/21/21 21:29 Mag Hydrox/Al Hydrox/Simeth 30 Ml Cup PO Q6HR PRN Indigestion Albuterol Sulfate 2.5 mg 03/21/21 21:17 Albuterol Nebulized 2.5 Mg/3 Ml INHALATION RT-Q6H PRN Dyspnea Aspirin 325 mg 12/23/21 09:00 03/22/21 08:54 Aspirin 325 Mg Tab PO 325 mg DAILY LEVI Administration Atorvastatin Calcium 80 mg 03/22/21 21:00 Atorvastatin 80 Mg Tab PO HS [facility] Calcium Carbonate/Glycine 1,000 mg 03/21/21 21:29 Calcium Carbonate 500 Mg Chewable PO Q4HR PRN Dyspepsia Clopidogrel Bisulfate 75 mg 03/22/21 09:00 03/22/21 08:54 Clopidogrel 75 Mg Tab PO 75 mg DAILY LEVI Administration Heparin Sodium (Porcine) 0 unit 03/22/21 03:42 03/22/21 04:00 Heparin Sodium 1,000 Un/Ml (10ml Vl) IV 1,814.375 unit PER PROTOCOL PRN Administration Low PTT Protocol Metoprolol Succinate 25 mg 03/22/21 09:00 03/22/21 08:53 Metoprolol Succinate (Er) 25 Mg Tab.Er.24h PO 25 mg DAILY LEVI Administration Nitroglycerin 0.4 mg 03/21/21 21:14 Nitroglycerin Sl Tabs 0.4 Mg Tab SUBLINGUAL Q5M PRN Chest Pain Ondansetron HCl 4 mg 03/21/21 21:29 Ondansetron 4 Mg/2 Ml Vial IVP Q8HR PRN Nausea And Vomiting Intake and Output 03/21/21 03/22/21 03/22/21 22:59 06:59 14:59 Intake Total 55.012 Balance 55.012 Intake: Intake, IV Titration 55.012 Amount Heparin Sod,Pork in 0.45% 55.012 NaCl 25,000 unit In 0.45 % NaCl 1 250ml.bag @ 12 UNITS/KG/HR 8.709 mls/hr IV .Q24H [facility] Rx#: [id number] Other: # Voids 1 Weight 72.575 kg 03/22/21 02:23 03/22/21 02:23 Assessment and Plan Assessment: #1 shortness of breath which has improved #2 coronary artery disease and status post PCI of the RCA #3 history of smoking #4 mild cardiomyopathy Plan #1 acute coronary event was ruled out #2 the patient seems to be asymptomatic #3 he is hemodynamically stable as well #4 he is asking to go home #5 from the cardiac standpoint of view, we will stop the heparin and get the patient up and around and if he is asymptomatic he can be discharged home
[2021-03-22 09:25] VITALS: BP 112/70; PULSE 74; RESP 18; TEMP 97.6
[2021-03-22 10:58] LABS: Chol/HDL Ratio 2.41 Ratio; LDL Cholesterol,Calculated 43.5 mg/dL (0.0-131.0); VLDL Calculation 11.24 mg/dL (5.00-40.00)
--- NOTE | 2021-03-22 11:01 | P.DS ---
Providers Date of admission: 03/21/21 21:14 Expected date of discharge: 03/22/21 Attending physician: Pino Leal MD Consults: 03/21/21 21:14 Consult Physician Urgent Consulting Provider: Kamran James Consult Reason/Comments: Chest pain Do you want consulting provider notified?: Already Contacted Primary care physician: Stated None Hospital Course: 65 year old male with recent stent placement this month, history of smoking up to one half to 2 pack cigarettes per day also drinking 6-8 beers per day for many years who was brought in by EM because of some shortness of breath and dizziness. He was watching TV all day when symptoms started. He states he stopped smoking and drinking about a week ago. He was concerned as he felt similar to what he had earlier with his heart attack which was on the eighth of this month he had a 100% RCA obstruction and got one stent. Denied any chest discomfort. He was admitted, watched on tele, trops cycled and remained negative. He was evaluated by cardio today and symptoms felt not be of cardiac origin. He was cleared for discharge. He will be discharged in a stable condition. Patient Condition at Discharge: Fair Plan - Discharge Summary Discharge Rx Participant: No New Discharge Prescriptions: Continue Metoprolol Succinate (ER) [Toprol XL] 25 mg PO DAILY #90 tablet Aspirin 81 mg PO DAILY #90 tab Atorvastatin [Lipitor] 80 mg PO HS #90 tab Nitroglycerin Sl Tabs [Nitrostat] 0.4 mg SUBLINGUAL Q5M PRN #100 tab PRN Reason: Chest Pain Clopidogrel [Plavix] 75 mg PO DAILY #90 tab Discharge Medication List Aspirin 81 mg PO DAILY #90 tab 03/09/21 [Rx] Atorvastatin [Lipitor] 80 mg PO HS #90 tab 03/09/21 [Rx] Clopidogrel [Plavix] 75 mg PO DAILY #90 tab 03/09/21 [Rx] Metoprolol Succinate (ER) [Toprol XL] 25 mg PO DAILY #90 tablet 03/09/21 [Rx] Nitroglycerin Sl Tabs [Nitrostat] 0.4 mg SUBLINGUAL Q5M PRN #100 tab 03/09/21 [Rx] Follow up Appointment(s)/Referral(s): Kameron Nevarez DO [STAFF PHYSICIAN] - 1 Week None,Stated [Primary Care Provider] - 1-2 days
[2021-03-22] MEDS ORDERED: ATORVASTATIN 80 MG TAB PO SCH (21:00)
== END 2021-03-22 11:45 | disposition home or self-care (01) ==
LOC: EC 19:17 → 6NMEDSUR 21:14
PROVIDERS: ADMIT Internal Medicine; ATTEND Internal Medicine
DX: R07.89 Other chest pain (principal); R06.02 Shortness of breath; R42 Dizziness and giddiness; R06.09 Other forms of dyspnea; I25.2 Old myocardial infarction; I25.10 Atherosclerotic heart disease of native coronary artery without angina pectoris; I25.5 Ischemic cardiomyopathy; Z20.822 Contact with and (suspected) exposure to COVID-19; Z95.5 Presence of coronary angioplasty implant and graft; Z87.891 Personal history of nicotine dependence; Z79.82 Long term (current) use of aspirin; Z79.899 Other long term (current) drug therapy; Z79.02 Long term (current) use of antithrombotics/antiplatelets; Z80.9 Family history of malignant neoplasm, unspecified; Z80.0 Family history of malignant neoplasm of digestive organs
CPT/HCPCS: 96376 ×2; 96366 ×2; 96365; 96375; 99285; 36415; 94640; 93005; 85379; 83880; 80061; 80053 ×2; 83690; 83735; 84484 ×2; 85025 ×2; 85610; 85730 ×2; 87635; 71046; 70450; G0378 ×2; J2060; J1644 ×3